=== PATIENT | female | born 1965 | race Caucasian/White ===

== ENCOUNTER 2022-12-03 08:36 | Outpatient (CLI) | payer OTHER, SELFPAY ==
--- NOTE | ~2022-12-03 | MR_ITS ---
MRI of the right foot CLINICAL HISTORY: Osteoarthritis TECHNIQUE: Sagittal T1-weighted and STIR images, axial T1-weighted, T2 fat-sat, and T1 fat-sat images , and coronal T1-weighted and T2 fat-sat images were performed. Following intravenous administration of 18 cc MultiHance gadolinium, T1-weighted fat-sat imaging was performed in the axial, coronal, and sagittal planes. FINDINGS: Bone marrow signals are unremarkable. No evidence for osteomyelitis. No fracture or bone ma rrow edema seen. There is degenerative change at the articulation of the hallux sesamoids with the fi rst metatarsal, but remaining joint spaces are otherwise intact. No joint effusion identified. There is edematous change of the plantar musculature of the foot, particularly about the first MTP roddy int region and first interspace. Flexor and extensor tendons are intact. Focal soft tissue ulcer is p resent at the plantar aspect of the foot at the level of the first metatarsal head. There is surround ing soft tissue thickening and enhancement with sinus tract present. Plantar fascia intact. IMPRESSION: No evidence for osteomyelitis. Plantar ulcer at the first metatarsal head region, with stranding surrounding soft tissue infectious change, with associated sinus tract in this region. Mild edema of the plantar musculature of the foot, especially about the first MTP joint region. Reviewed, dictated and finalized at location M. IMPRESSION: No evidence for osteomyelitis. Plantar ulcer at the first metatarsal head region, with stranding surrounding s oft tissue infectious change, with associated sinus tract in this region. Mild edema of the plantar musculature of the foot, especially about the first M TP joint region.
== END 2022-12-03 08:37 | disposition home or self-care (01) ==
PROVIDERS: PCP Emergency Medicine; Visit Provider Podiatrist Foot & Ankle Surgery
DX: M86.171 Other acute osteomyelitis, right ankle and foot (principal)
CPT/HCPCS: 73720; A9577

== ENCOUNTER 2023-10-08 06:58 | Outpatient (CLI) | payer OTHER, SELFPAY ==
--- NOTE | ~2023-10-08 | MR_ITS ---
MRI of the right foot CLINICAL HISTORY: Osteomyelitis COMPARISON: 12/03/2022 TECHNIQUE: Sagittal T1-weighted and STIR images, axial T1-weighted and T2 fat-sat images, and coronal T1-weighted, T2 fat-sat, and proton-density fat-sat images were acquired. FINDINGS: Suspected prior partial amputation of the distal aspect of the first metatarsal versus dest ruction of the first metatarsal head. There is hypointense marrow signal loss of cortical integrity a t the presumed surgical margin of the first metatarsal shaft. Findings are suspicious for residual/re current osteomyelitis of the distal aspect of the first metatarsal remnant. There are probable Freibe rg's infraction of the second metatarsal head rather than osteomyelitis, though the latter is not exc luded. Remaining visualized osseous structures demonstrate normal marrow signal. There is crescentic fluid collection along the medial aspect of the first metatarsal remnant, suspici ous for abscess, measuring approximately 2.3 x 0.7 x 2.3 cm in extent. Associated possible soft tissu e ulcer superficial to the abscess. There is advanced osteoarthritic change at the second and third t arsometatarsal joints, with reactive marrow edema in the middle and lateral cuneiforms. There is diffuse dorsal subcutaneous soft tissue near the foot. No intermetatarsal bursitis or Haddad 's neuroma clearly evident. There is soft tissue edema in the first interspace region. IMPRESSION: Findings compatible with osteomyelitis of the distal first metatarsal remnant. Probable prior resecti on of the first metatarsal head versus destruction. Correlate with any relevant surgical history. 2.3 x 0.7 x 2.3 cm abscess along the medial aspect of the first metatarsal remnant. Suspected Freiberg's infraction of the second metatarsal head rather than osteoarthritis, though the latter is not excluded. Correlate clinically. Advanced osteoarthritis of the second and third tarsometatarsal joints. Reviewed, dictated and finalized at location M. IMPRESSION: Findings compatible with osteomyelitis of the distal first metatarsal remnant. Probable prior resection of the first metatarsal head versus destruction. Corre late with any relevant surgical history. 2.3 x 0.7 x 2.3 cm abscess along the medial aspect of the first metatarsal remn ant. Suspected Freiberg's infraction of the second metatarsal head rather than osteo arthritis, though the latter is not excluded. Correlate clinically. Advanced osteoarthritis of the second and third tarsometatarsal joints.
== END 2023-10-08 06:59 ==
PROVIDERS: PCP Emergency Medicine; Visit Provider Nurse Practitioner Family
DX: M86.171 Other acute osteomyelitis, right ankle and foot (principal); M19.071 Primary osteoarthritis, right ankle and foot
CPT/HCPCS: 73718